=== PATIENT | female | born 1985 | race Caucasian/White ===

== ENCOUNTER 2024-07-18 10:56 | Outpatient (AMB) | payer BC, SELFPAY ==
--- NOTE | 2024-07-18 11:10 | AMB.GYNCLNOT ---
Vital Signs 07/18/24 11:20 Height 1.55 m Height Method Stated Weight 84.822 kg Weight Measurement Method Standing Scale BMI 35.3 BP 138/93 H Blood Pressure Source Automatic Cuff Blood Pressure Location Left Upper Arm Position Sitting Respiration 18 Pulse 93 Pulse Source Monitor Temp 97.2 F Temp Source Oral Pulse Oximetry (%) 98 Oxygen Delivery Method Room Air Allergies/Home Meds Allergies & Medications Allergies amoxicillin Allergy (Verified 07/18/24 11:11) Penicillins Allergy (Verified 07/18/24 11:11) Medication Reconciliation hyoscyamine sulfate 0.125 mg tablet (Levsin) 0.125 mg PO QID 07/18/24 [History Confirmed 07/18/24] lisinopril 20 mg tablet 20 mg PO QDAY 07/18/24 [History Confirmed 07/18/24] norethindrone 1 mg-ethinyl estradiol 20 mcg (21)-iron 75 mg (7) tablet (Loestrin Fe 03/05 (28-Day)) 1 tab PO QDAY #84 tabs 07/19/24 [Rx] sertraline 50 mg tablet (Zoloft) 50 mg PO QDAY #30 tabs 07/19/24 [Rx] fluconazole 150 mg tablet 150 mg PO QWEEK 14 weeks #14 tabs 07/21/24 [Rx] Intake Visit Data Collection New Patient or Established: New Patient (never been to [facility]) Reason for Visit:: OVARIAN CYST/ HEAVY MENSES Seen by Clinical Staff ONLY (RN/MA): No Blueprinting And Photocopy Supervisor Required: No Do You Feel Safe at Home: Yes Authorities Contacted: N/A PCP or OBGYN visit in last 3 months: Yes Hx Now: No Are you currently on any form of Control: No Pain Present Currently: No Pain Scale Used: Alvarado-Reddy/Numerical Pain scale:: 0 Smoking Status Smoking Status: Never smoker 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 Does not want to have any more children. 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 They think it is irritable bowel but she is being tested for celiac disease and H. pylori. Other Relevant History: History of x 2 in 2017 and in 2020. She has 2 boys, her son Frankie is 8 her son Kwaku is a 5. The patient has anxiety and chronic hypertension. She is on lisinopril 20 mg p.o. daily. Questionnaires Covid-19 Vaccine Questionnaire Has patient been vacinated for Covid-19 Have you been vacinated for Covid-19: No PHQ-9 PHQ-2 Over the last 2 weeks, how often have you been bothered by any of the following problems? 1. Little interest or pleasure in doing things: not at all 2. Feeling down, depressed, or hopeless: not at all Total score: 0 PHQ-9 3. Trouble falling or staying asleep, or sleeping too much: Not at all 4. Feeling tired or having little energy: Not at all 5. Poor appetite or overeating: Not at all 6. Feeling bad about yourself - or that you are a failure or have let yourself or your family down: Not at all 7. Trouble concentrating on things, such as reading the newspaper or watching television: Not at all 8. Moving or speaking so slowly that other people could have noticed? - Or the opposite - being so fidgety or restless that you have been moving around a lot more than usual: not at all 9. Thoughts that you would be better off or of hurting yourself in some way: Not at all Total score: 0 If you checked off any problems, how difficult have these problems made it for you to do your work, take care of things at home, or get along with other people?: not difficult at all Source: Developed by Drs. Sharan Pack, Myra Mahajan, Norbert Flores and colleagues, with an educational jennifer from [employer]. Depression screen completed yes Social History Living Situation History Marital Status: Lives With: Family Housing: House Housing Other:: 2 boys, Connor 8, Kwaku is 5. is [place]. 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 Tobacco History Smoking Status: Never smoker Second Hand Smoke Exposure: No Alcohol History Alcohol Intake: Current Alcohol Intake Frequency: holidays/special occasions only Domestic Abuse History Do You Feel Safe at Home: Yes History of Present Illness HPI Narrative The patient is a 38-year-old -0-0-2 who I used to see in [place] who presents to establish care. She states that she has heavier cycles. They are not interested in any more babies. She was referred from Maribell Hernandez, a physicians cardiovascular physician assistant. She was told she possibly has a dermoid on her right ovary.. I do have her MRI and her ultrasound reports where the right ovary measures 3.6 x 3.3 x 3.1 cm with a complex structure measuring 2.6 x 1.9 x 2.5 cm , a possible dermoid. The patient reports that she is having a lot of GI issues and her primary care is working her up for this. She is not sure if these are hormonal related. She reports heavy cycles with occasional clots. She reports a lot of anxiety. She states they found out recently her dad was an alcoholic. He hid this from everyone. The patient is dealing with a lot of disbelief and anger. Especially since her father used to help watch her pets and her kids. The patient does not desire any more children. She had a history of x 2 in the past. 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 She was going to [employer] and most recently [employer]. She states that she has had GI issues and is not sure if this was related to anxiety. They are working up for H. pylori and celiac disease or checking her stool for pancreatic enzymes. I do not have any of those reports available. She did release her records from [place] to me. On her father's side there is a history of ovarian cancer. Her father's aunts and her father's cousin had ovarian cancer. Patient is amendable to trying control low-dose control and Zoloft for her symptoms. She is amendable to an ablation and tubal if needed. I am not sure I could get an IUD in the patient. Review of Systems Review of Systems Narrative Review of Systems: No hot flashes or night sweats. Positive diarrhea. Positive cramping. Positive heavy cycles. Positive anxiety and emotional lability. Exam General General Appearance: alert, comfortable, cooperative, healthy appearing, well developed, well groomed and anxious Neck Neck exam: Present normal inspection, full ROM and trachea midline Chest Chest inspection: Present normal inspection and symmetric chest wall rise Resp Respiratory exam: Present normal lung sounds bilaterally Card Cardiovascular exam: Present regular rate, normal rhythm and normal heart sounds Abdominal Abdominal exam: Present soft and normal bowel sounds Psych Psychiatric exam: Present normal affect and normal mood Skin Skin exam: Present warm, dry, intact and normal color Office Procedures OB Clinic LOC & Office Proc's Nursing/Assessment Patient Status: Initial/New Patient OB Clinic Nursing Assessment: Medication Reconciliation, Update PMH in EMR and Vital Signs OB Clinic Coordination of Care: Education Complex Pt/Fam, Consent,records obtained, informed consent, Lab and Imaging orders, Results/Orders obtained and Staff clarify orders New Patient Charge New Patient Point Assignment: [id number] New Patient Point 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 If it is elevated ,we will consider an ablation and laparoscopic tubal ligation. (2) Anxiety: Status: Acute Assessment and Plan: We did discuss alcoholism and the fact that it is a disease. That she has to find a way to move forward and somehow forgive her father. I recommended counseling for her her mother and her family. She can actually call her insurance and get referred to a psychiatric provider to begin counseling. In the meantime we will try zoloft 50 mg PO QD
[2024-07-18 11:20] VITALS: BP 138/93; PULSE 93; RESP 18; TEMP 36.2; O2SAT 98; BMI 35.3
== END 2024-07-18 12:18 | disposition home or self-care (01) ==
LOC: HODSOBC 10:56
PROVIDERS: Supervising Provider Obstetrics & Gynecology; Visit Provider Obstetrics & Gynecology
DX: N93.8 Other specified abnormal uterine and vaginal bleeding (principal); F41.9 Anxiety disorder, unspecified; I10 Essential (primary) hypertension; Z80.41 Family history of malignant neoplasm of ovary; Z79.899 Other long term (current) drug therapy; Z88.0 Allergy status to penicillin
CPT/HCPCS: 99203; G0463